=== PATIENT | male | born 1960 | race Caucasian/White ===

== ENCOUNTER 2016-10-28 16:15 | Emergency (ER) | payer BC ==
[2016-10-28 16:32] VITALS: BP 134/85; PULSE 70; TEMP 97.9; BMI 21.6
--- NOTE | 2016-10-28 17:13 | PDOC ---
History of Present Illness - History of Present Illness Initial Comments: 10/28/16 17:18 The patient is a 56 year old male, with a significant past medical history of diabetes (insulin) and hypertension, who presents to the emergency department with severe right sided headaches for a few days. He reports the pain is a constant, throbbing pain. He reports taking two Aleve with little to no alleviation of the pain. Secondarily, he reports right eye pain. He denies experiencing migraines in the past. He reports three episodes of vomiting last night. He states that if he presses on the right side of his posterior neck, it aggravates his right sided headache. He denies chest pain, shortness of breath, headache and dizziness. He denies fever, chills, nausea, vomit, diarrhea and constipation. He denies dysuria, frequency, urgency and hematuria. Allergies: NKDA <Aggie Mercado - Last Filed: 10/28/16 18:10> <Chago Patino - Last Filed: 10/28/16 18:55> - General Chief Complaint: Migraine Headache Stated Complaint: HEADACHE Past History <Aggie Mercado - Last Filed: 10/28/16 18:10> - Past Medical History Diabetes: Yes HTN: Yes Hypercholesterolemia: Yes - Immunization History Immunization Up to Date: Yes (no flu shot) - Psycho/Social/Smoking Cessation Hx Anxiety: No Suicidal Ideation: No Smoking History: Current every day smoker Have you smoked in the past 12 months: Yes Number of Cigarettes Smoked Daily: 6 Information on smoking cessation initiated: No Hx Alcohol Use: Yes Drug/Substance Use Hx: No Substance Use Type: Alcohol <Chago Patino - Last Filed: 10/28/16 18:55> - Past Medical History Allergies/Adverse Reactions: Allergies Allergy/AdvReac Type Severity Reaction Status Date / Time No Known Allergies Allergy Verified 10/28/16 16:28 Review of Systems - Review of Systems Able to Perform ROS?: Yes Comments:: 10/28/16 17:21 CONSTITUTIONAL: Absent: fever, chills, diaphoresis, generalized weakness, malaise, loss of appetite HEENT: (+) right eye pain. Absent: rhinorrhea, nasal congestion, throat pain, throat swelling, difficulty swallowing, mouth swelling, ear pain, eye pain, visual Changes CARDIOVASCULAR: Absent: chest pain, syncope, palpitations, irregular heart rate, lightheadedness , peripheral edema RESPIRATORY: Absent: cough, shortness of breath, dyspnea with exertion, orthopnea, wheezing, stridor, hemoptysis GASTROINTESTINAL: Absent: abdominal pain, abdominal distension, nausea, vomiting, diarrhea, constipation, melena, hematochezia GENITOURINARY: Absent: dysuria, frequency, urgency, hesitancy, hematuria, flank pain, genital pain MUSCULOSKELETAL: Absent: myalgia, arthralgia, joint swelling SKIN: Absent: rash, itching, pallor HEMATOLOGIC/IMMUNOLOGIC: Absent: easy bleeding, easy bruising, lymphadenopathy, frequent infections ENDOCRINE: Absent: unexplained weight gain, unexplained weight loss, heat intolerance, cold intolerance NEUROLOGIC: (+) headache, Absent: focal weakness or paresthesias, dizziness, unsteady gait , seizure, mental status changes, bladder or bowel incontinence PSYCHIATRIC: Absent: anxiety, depression, suicidal or homicidal ideation, hallucinations. <Aggie Mercado - Last Filed: 10/28/16 18:10> *Physical Exam - Vital Signs Last Vital Signs Temp Pulse Resp BP Pulse Ox 97.9 F 70 20 134/85 100 10/28/16 16:29 10/28/16 16:29 10/28/16 16:29 10/28/16 16:29 10/28/16 16:29 - Physical Exam Comments: 10/28/16 17:22 GENERAL: Well developed, well nourished. Awake and alert. No acute distress. HEENT: Normocephalic, atraumatic. PERRLA, EOMI. No conjunctival pallor. Sclera are non- icteric. Moist mucous membranes. Oropharynx is clear. NECK: Supple. Full ROM. No JVD. Carotid pulses 2+ and symmetric, without bruits. No thyromegaly. No lymphadenopathy. CARDIOVASCULAR: Regular rate and rhythm. No murmurs, rubs, or gallops. Distal pulses are 2+ and symmetric. PULMONARY: No evidence of respiratory distress. Lungs clear to auscultation bilaterally. No wheezing, rales or rhonchi. ABDOMINAL: Soft. Non-tender. Non-distended. No rebound or guarding. No organomegaly. Normoactive bowel sounds. MUSCULOSKELETAL Normal range of motion at all joints. No bony deformities or tenderness. No CVA tenderness. EXTREMITIES: No cyanosis. No clubbing. No edema. No calf tenderness. SKIN: Warm and dry. Normal capillary refill. No rashes. No jaundice. NEUROLOGICAL: Alert, awake, appropriate. Cranial nerves 2-12 intact. Normoreflexic in the upper and lower extremities. Normal speech. Toes are down-going bilaterally. Gait is normal without ataxia. PSYCHIATRIC: Cooperative. Good eye contact. Appropriate mood and affect. <Aggie Mercado - Last Filed: 10/28/16 18:10> - Vital Signs Last Vital Signs Temp Pulse Resp BP Pulse Ox 97.9 F 70 20 134/85 100 10/28/16 16:29 10/28/16 16:29 10/28/16 16:29 10/28/16 16:29 10/28/16 16:29 <Chago Patino - Last Filed: 10/28/16 18:55> ED Treatment Course - LABORATORY CBC & Chemistry Diagram: 10/28/16 17:14 <Aggie Mercado - Last Filed: 10/28/16 18:10> - LABORATORY CBC & Chemistry Diagram: 10/28/16 17:14 10/28/16 17:14 <Chago Patino - Last Filed: 10/28/16 18:55> *DC/Admit/Observation/Transfer - Attestations Scribe Attestion: 10/28/16 17:24 Documentation prepared by Aggie Mercado, acting as medical psychotherapist for Chago Patino MD, <Aggie Mercado - Last Filed: 10/28/16 18:10> - Discharge Dispostion Admit: No <Chago Patino - Last Filed: 10/28/16 18:55> Diagnosis at time of Disposition: Headache, Chronic sinusitis - Discharge Dispostion Disposition: HOME Condition at time of disposition: Improved
[2016-10-28] MEDS ORDERED: METOCLOPRAMIDE HCL INJECTION 10 MG/2 ML VIAL IVPUSH ONE (17:15)
[2016-10-28] MEDS ORDERED: ACETAMINOPHEN 500 MG TABLET (FP) PO ONE (17:16)
[2016-10-28] MEDS ORDERED: ACETAMINOPHEN INJECTION 100 ML IVPB ONE (17:30)
[2016-10-28] MEDS ORDERED: METOCLOPRAMIDE HCL INJECTION 10 MG/2 ML VIAL ONE (17:30)
[2016-10-28 17:36] LABS: BASOPHIL 0.9 % (0-2.0); EOSINOPHIL 1.1 % (0-4.5); MCH 30.3 pg (25.7-33.7); MCHC 32.3 g/dl (32.0-35.9); MEAN CELL VOLUME 93.6 fl (80-96); MEAN PLT VOLUME 11.8 fl (7.5-11.1); NEUTROPHILS 66.8 % (42.8-82.8); PLATELET COUNT 198 K/MM3 (134-434); RDW 13.7 % (11.9-15.9)
[2016-10-28] MEDS ORDERED: ACETAMINOPHEN 325 MG TABLET (FP) ONE (17:40)
[2016-10-28 18:25] LABS: ALBUMIN 3.7 g/dl (3.4-5.0); ALK PHOS 76 U/L (45-117); ANION GAP 9 (8-16); BILIRUBIN,TOTAL 0.4 mg/dL (0.2-1.0); CO2 29 mmol/L (21-32); CREATININE 0.7 mg/dL (0.7-1.3); GLUCOSE,RANDOM 225 mg/dL (74-106); SGOT/AST 9 U/L (15-37); SGPT/ALT 17 U/L (12-78); TOT PROT 7.2 g/dl (6.4-8.2)
[2016-10-28] MEDS ORDERED: AMOX TR/POT CLAV 875MG/125MG TABLETS (FP) PO ONE (18:56)
[2016-10-28] MEDS ORDERED: AMOX TR/POT CLAV 875MG/125MG TABLETS (FP) ONE (19:00)
== END 2016-10-28 19:46 | disposition home or self-care (01) ==
LOC: JER 16:15
PROC: 3E033GC Introduction of Other Therapeutic Substance into Peripheral Vein, Percutaneous Approach (ICD-10-PCS; principal; 2016-10-28)
DX: R51 Headache (principal); J32.8 Other chronic sinusitis; F17.210 Nicotine dependence, cigarettes, uncomplicated; I10 Essential (primary) hypertension; E11.9 Type 2 diabetes mellitus without complications; Z79.4 Long term (current) use of insulin; E78.00 Pure hypercholesterolemia, unspecified
CPT/HCPCS: 36415; 70450-TC; 80053; 85025; 99282-25

== ENCOUNTER 2023-07-25 15:41 | Emergency (ER) | payer BC ==
[2023-07-25 15:52] VITALS: BMI 19.6
[2023-07-25] MEDS ORDERED: KETOROLAC TROMETHAMINE 30 MG/1 ML VIAL IM ONE (16:51)
[2023-07-25] MEDS ORDERED: ACETAMINOPHEN 500 MG TABLET (FP) PO ONE (16:55)
[2023-07-25] MEDS ORDERED: KETOROLAC TROMETHAMINE 30 MG/1 ML VIAL ONE (17:28)
[2023-07-25] MEDS ORDERED: ACETAMINOPHEN 500 MG TABLET (FP) ONE (17:28)
[2023-07-25 19:33] VITALS: BP 130/79; PULSE 80; RESP 12; TEMP 98.5
== END 2023-07-25 22:02 | disposition home or self-care (01) ==
LOC: JER 15:41
PROC: 3E0233Z Introduction of Anti-inflammatory into Muscle, Percutaneous Approach (ICD-10-PCS; principal; 2023-07-25)
DX: M79.605 Pain in left leg (principal); R26.2 Difficulty in walking, not elsewhere classified; M79.604 Pain in right leg
CPT/HCPCS: 72100-TC-FY; 73502-TC-LT-FY; 93971-TC; 99284-25

== ENCOUNTER 2023-07-30 12:44 | Inpatient (IN) | payer BC ==
[2023-07-30] MEDS ORDERED: ACETAMINOPHEN 1000 MG/100 ML BAG IVPB ONE (14:21)
[2023-07-30] MEDS ORDERED: ACETAMINOPHEN INJECTION 100 ML IVPB ONE (14:24)
[2023-07-30 14:29] LABS: BASO % 0.8 % (0-2.0); EOS % 6.3 % (0-4.5); HEMATOCRIT 45.7 % (35.4-49); LYMPH % 15.2 % (8-40); MCH 32.1 pg (25.7-33.7); MEAN CELL VOLUME 91.7 fl (80-96); MEAN PLT VOLUME 10.9 fl (7.5-11.1); MONO % 9.5 % (3.8-10.2); NEUT % 68.2 % (42.8-82.8); PLATELET COUNT 226 10^3/uL (134-434); RBC 4.98 M/mm3 (4.00-5.60); RDW 13.6 % (11.9-15.9); WHITE BLOOD COUNT 12.5 K/mm3 (4.0-10.0)
[2023-07-30 14:38] LABS: INR 0.94 (0.83-1.09); PROTHROMBIN TIME (PATIENT) 10.9 SEC (9.7-13.0)
[2023-07-30 14:41] LABS: ACTIVATED PTT 28.8 SECONDS (25.2-36.5)
[2023-07-30 14:50] LABS: POTASSIUM 4.2 mmol/L (3.5-5.1)
[2023-07-30 14:52] LABS: CALCIUM 8.8 mg/dL (8.5-10.1)
[2023-07-30 14:54] LABS: ALBUMIN 3.2 g/dl (3.4-5.0); BLOOD UREA NITROGEN 7.6 mg/dL (7-18)
[2023-07-30 14:56] LABS: CREATININE 0.8 mg/dL (0.55-1.3)
[2023-07-30 14:58] LABS: BILIRUBIN,TOTAL 0.2 mg/dL (0.2-1); TOT PROT 6.9 g/dl (6.4-8.2)
[2023-07-30] MEDS ORDERED: HEPARIN NA (PORCINE) 5,000 UNITS/ML 1ML VIAL IVPUSH PRN ×2 (18:04)
[2023-07-30] MEDS ORDERED: HEPARIN - 25,000 UNIT in SODIUM CHLORIDE 495 ML IV SCH ×2 (18:15→19:06)
[2023-07-30] MEDS ORDERED: HEPARIN NA (PORCINE) 5,000 UNITS/ML 1ML VIAL IVPUSH ONE (18:16)
[2023-07-30] MEDS ORDERED: HEPARIN INFUSION - 25,000 UNITS/500 ML INFUS.BAG IVPB ONE (18:27)
[2023-07-30] MEDS ORDERED: HEPARIN NA (PORCINE) 5,000 UNITS/ML 1ML VIAL ONE (18:27)
[2023-07-30] MEDS ORDERED: ATORVASTATIN CA 40 MG TABLET (FP) PO SCH (22:12)
[2023-07-31 02:16] LABS: INR 0.93 (0.83-1.09); PROTHROMBIN TIME (PATIENT) 10.8 SEC (9.7-13.0)
[2023-07-31 02:19] LABS: ACTIVATED PTT 53.8 SECONDS (25.2-36.5)
[2023-07-31] MEDS ORDERED: ASPIRIN 81 MG CHEWABLE TABLETS PO SCH ×2 (03:40→10:00)
[2023-07-31] MEDS ORDERED: ATORVASTATIN CA 40 MG TABLET (FP) ONE (05:05)
[2023-07-31] MEDS ORDERED: ASPIRIN 81 MG CHEWABLE TABLETS ONE (05:06)
[2023-07-31] MEDS ORDERED: metFORMIN HCL 500 MG TABLET (FP) PO SCH (07:00)
[2023-07-31] MEDS ORDERED: sitaGLIPtin PHOSPHATE 50 MG TABLET PO SCH (07:00)
[2023-07-31 07:53] LABS: BASO % 1.1 % (0-2.0); EOS % 6.4 % (0-4.5); HEMATOCRIT 44.1 % (35.4-49); HEMOGLOBIN 14.9 GM/dL (11.7-16.9); LYMPH % 19.3 % (8-40); MCH 31.4 pg (25.7-33.7); MCHC 33.8 g/dl (32.0-35.9); MEAN CELL VOLUME 92.9 fl (80-96); MEAN PLT VOLUME 11.1 fl (7.5-11.1); MONO % 9.3 % (3.8-10.2); NEUT % 63.9 % (42.8-82.8); PLATELET COUNT 233 10^3/uL (134-434); RBC 4.75 M/mm3 (4.00-5.60); RDW 13.5 % (11.9-15.9); WHITE BLOOD COUNT 11.4 K/mm3 (4.0-10.0)
[2023-07-31] MEDS: INSULIN SLIDING SCALE (NOVOLOG) 1 VIAL SQ SCH ×4 (08:01→21:41)
[2023-07-31 08:02] LABS: ACTIVATED PTT 51.7 SECONDS (25.2-36.5)
[2023-07-31 08:12] LABS: INR 1.01 (0.83-1.09); PROTHROMBIN TIME (PATIENT) 11.7 SEC (9.7-13.0)
[2023-07-31 08:22] LABS: CALCIUM 8.7 mg/dL (8.5-10.1); MAGNESIUM 2.1 mg/dL (1.8-2.4)
[2023-07-31 08:25] LABS: CREATININE 0.6 mg/dL (0.55-1.3); PHOSPHOROUS 4.2 mg/dL (2.5-4.9)
[2023-07-31 08:27] LABS: BILIRUBIN,TOTAL 0.4 mg/dL (0.2-1); TOT PROT 6.7 g/dl (6.4-8.2)
[2023-07-31] MEDS ORDERED: LOSARTAN POTASSIUM 50 MG TABLET PO SCH (10:00)
[2023-07-31] MEDS ORDERED: CLOPIDOGREL BISULFATE 75 MG TABLET (FP) PO SCH (10:00)
[2023-07-31] MEDS ORDERED: EMPAGLIFLOZIN (JARDIANCE) 10 MG TABLET PO SCH (10:00)
[2023-07-31] MEDS ORDERED: PATIENT'S OWN MEDICATION (NON-FORMULARY) (Sitagliptin Phos/Metformin Hcl [Janumet 50-1,000 PO SCH (10:00)
[2023-07-31] MEDS ORDERED: GABAPENTIN 100 MG CAPSULE PO SCH (10:00)
[2023-07-31] MEDS ORDERED: LACTATED RINGERS SOLUTION 1,000 ML IV SCH (10:45)
[2023-07-31] MEDS ORDERED: ONDANSETRON 4 MG/2 ML VIAL IVPUSH PRN ×2 (10:45→15:49)
[2023-07-31] MEDS ORDERED: PROMETHAZINE HCL 25 MG/1 ML VIAL IVPB PRN ×2 (10:45→15:49)
[2023-07-31] MEDS ORDERED: LIDOCAINE HCL 1%, 10 MG/ML (20ML VIAL) NR ONE ×2 (10:52→14:30)
[2023-07-31] MEDS ORDERED: HEPARIN NA (PORCINE) 5,000 UNITS/ML 1ML VIAL SQ ONE ×2 (10:53→14:36)
[2023-07-31] MEDS ORDERED: LIDOCAINE HCL 1%, 10 MG/ML (20ML VIAL) ONE (11:16)
[2023-07-31] MEDS ORDERED: HEPARIN NA (PORCINE) 5,000 UNITS/ML 1ML VIAL ONE (11:16)
[2023-07-31] MEDS ORDERED: MIDAZOLAM HCL 2 MG/2 ML SINGLE DOSE VIAL ONE (14:03)
[2023-07-31] MEDS ORDERED: FENTANYL CITRATE/PF 50 MCG/ML VIAL ONE (14:03)
[2023-07-31] MEDS ORDERED: PROPOFOL 20 ML ONE (14:03)
[2023-07-31] MEDS ORDERED: ceFAZolin SODIUM 1 GM VIAL ONE (14:13)
[2023-07-31] MEDS ORDERED: SODIUM CHLORIDE 0.9% P/F 10 ML VIAL IJ ONE (14:13)
[2023-07-31] MEDS ORDERED: ceFAZolin SODIUM 1 GM VIAL IVPB ONE (14:20)
[2023-07-31] MEDS ORDERED: LIDOCAINE HCL/PF 2% SDV 5ML VIAL ONE (14:30)
[2023-07-31] MEDS ORDERED: METOPROLOL TARTRATE 5 MG/5 ML VIAL ONE (15:23)
[2023-07-31] MEDS: APIXABAN 5 MG TABLET PO SCH ×3 (15:43→21:37)
[2023-07-31] MEDS: LACTATED RINGERS SOLUTION 1,000 ML IV SCH ×2 (17:26→18:44)
[2023-07-31] MEDS ORDERED: ACETAMINOPHEN 1000 MG/100 ML BAG IVPB PRN (17:56)
[2023-07-31] MEDS ORDERED: ACETAMINOPHEN 325 MG TABLET (FP) PO PRN (18:39)
[2023-07-31] MEDS: ACETAMINOPHEN 1000 MG/100 ML BAG IVPB PRN (18:44)
[2023-07-31] MEDS: GABAPENTIN 100 MG CAPSULE PO SCH (21:37)
[2023-07-31] MEDS: ATORVASTATIN CA 40 MG TABLET (FP) PO SCH (21:37)
[2023-07-31] MEDS: oxyCODONE HCL 5 MG TABLET PO PRN (23:23)
[2023-08-01] MEDS: LACTATED RINGERS SOLUTION 1,000 ML IV SCH ×2 (03:07→16:18)
[2023-08-01] MEDS: INSULIN SLIDING SCALE (NOVOLOG) 1 VIAL SQ SCH ×4 (06:43→22:07)
[2023-08-01] MEDS ORDERED: INSULIN (NOVOLOG) ASPART 100 UNITS/ML 10ML VIAL ONE (07:07)
[2023-08-01 09:43] LABS: BASO % 0.6 % (0-2.0); EOS % 3.7 % (0-4.5); HEMATOCRIT 39.6 % (35.4-49); HEMOGLOBIN 13.5 GM/dL (11.7-16.9); LYMPH % 13.1 % (8-40); MCH 31.7 pg (25.7-33.7); MCHC 34.1 g/dl (32.0-35.9); MEAN PLT VOLUME 10.7 fl (7.5-11.1); NEUT % 72.6 % (42.8-82.8); PLATELET COUNT 232 10^3/uL (134-434); RBC 4.26 M/mm3 (4.00-5.60); RDW 13.1 % (11.9-15.9)
[2023-08-01] MEDS: LOSARTAN POTASSIUM 50 MG TABLET PO SCH (09:57)
[2023-08-01] MEDS: GABAPENTIN 100 MG CAPSULE PO SCH ×2 (09:57→22:02)
[2023-08-01] MEDS: oxyCODONE HCL 5 MG TABLET PO PRN (09:58)
[2023-08-01] MEDS: ASPIRIN 81 MG CHEWABLE TABLETS PO SCH (09:58)
[2023-08-01 10:02] LABS: POTASSIUM 4.1 mmol/L (3.5-5.1)
[2023-08-01 10:05] LABS: BLOOD UREA NITROGEN 6.7 mg/dL (7-18)
[2023-08-01 10:07] LABS: CALCIUM 8.7 mg/dL (8.5-10.1)
[2023-08-01 10:09] LABS: CREATININE 0.8 mg/dL (0.55-1.3)
[2023-08-01] MEDS: APIXABAN 5 MG TABLET PO SCH ×3 (10:58→22:02)
[2023-08-01] MEDS: ACETAMINOPHEN 1000 MG/100 ML BAG IVPB PRN ×2 (16:12→22:15)
[2023-08-01 16:16] LABS: BASO % 0.8 % (0-2.0); HEMATOCRIT 39.3 % (35.4-49); HEMOGLOBIN 13.3 GM/dL (11.7-16.9); LYMPH % 15.7 % (8-40); MCH 31.2 pg (25.7-33.7); MCHC 33.7 g/dl (32.0-35.9); MEAN CELL VOLUME 92.5 fl (80-96); MEAN PLT VOLUME 11.2 fl (7.5-11.1); MONO % 10.2 % (3.8-10.2); NEUT % 67.3 % (42.8-82.8); PLATELET COUNT 238 10^3/uL (134-434); RBC 4.25 M/mm3 (4.00-5.60); RDW 13.2 % (11.9-15.9); WHITE BLOOD COUNT 12.5 K/mm3 (4.0-10.0)
[2023-08-01] MEDS: ATORVASTATIN CA 40 MG TABLET (FP) PO SCH (22:02)
[2023-08-02] MEDS: LACTATED RINGERS SOLUTION 1,000 ML IV SCH (00:49)
[2023-08-02] MEDS: INSULIN SLIDING SCALE (NOVOLOG) 1 VIAL SQ SCH ×2 (06:04→12:22)
[2023-08-02] MEDS: ACETAMINOPHEN 1000 MG/100 ML BAG IVPB PRN (06:23)
[2023-08-02] MEDS: APIXABAN 5 MG TABLET PO SCH (10:05)
[2023-08-02] MEDS: GABAPENTIN 100 MG CAPSULE PO SCH (10:05)
[2023-08-02] MEDS: LOSARTAN POTASSIUM 50 MG TABLET PO SCH (10:05)
[2023-08-02] MEDS: ASPIRIN 81 MG CHEWABLE TABLETS PO SCH (10:05)
[2023-08-02 10:07] VITALS: RESP 20
[2023-08-02 10:14] LABS: HEMATOCRIT 38.3 % (35.4-49); MCH 31.1 pg (25.7-33.7); MEAN CELL VOLUME 91.4 fl (80-96); MEAN PLT VOLUME 11.1 fl (7.5-11.1); PLATELET COUNT 223 10^3/uL (134-434); RBC 4.19 M/mm3 (4.00-5.60); RDW 13.2 % (11.9-15.9); WHITE BLOOD COUNT 13.5 K/mm3 (4.0-10.0)
[2023-08-02 11:17] LABS: ALBUMIN 2.9 g/dl (3.4-5.0); CALCIUM 8.9 mg/dL (8.5-10.1)
[2023-08-02 11:18] LABS: BLOOD UREA NITROGEN 6.3 mg/dL (7-18); MAGNESIUM 1.7 mg/dL (1.8-2.4)
[2023-08-02 11:20] LABS: CREATININE 0.5 mg/dL (0.55-1.3)
[2023-08-02 11:21] LABS: PHOSPHOROUS 3.7 mg/dL (2.5-4.9)
[2023-08-02 11:22] LABS: BILIRUBIN,TOTAL 0.5 mg/dL (0.2-1)
[2023-08-02 11:23] LABS: TOT PROT 6.3 g/dl (6.4-8.2)
[2023-08-02 14:25] VITALS: BP 154/75; PULSE 92; TEMP 98.3
[2023-08-02 20:31] VITALS: BMI 19.8
== END 2023-08-02 15:55 | disposition home or self-care (01) | DRG 272 ==
LOC: JER 12:44 → JERBED 19:04 → UNDOADMIN 19:04 → J6S 07-31 11:02
PROVIDERS: ADMIT Internal Medicine; ATTEND Internal Medicine
PROC: 04CN3ZZ Extirpation of Matter from Left Popliteal Artery, Percutaneous Approach (ICD-10-PCS; 2023-07-31)
PROC: 047N3ZZ Dilation of Left Popliteal Artery, Percutaneous Approach (ICD-10-PCS; 2023-07-31)
PROC: 04CN3ZZ Extirpation of Matter from Left Popliteal Artery, Percutaneous Approach (ICD-10-PCS; 2023-07-31)
PROC: B40GYZZ Plain Radiography of Left Lower Extremity Arteries using Other Contrast (ICD-10-PCS; 2023-07-31)
PROC: B40DYZZ Plain Radiography of Aorta and Bilateral Lower Extremity Arteries using Other Contrast (ICD-10-PCS; principal; 2023-07-31 13:00)
DX: E11.51 Type 2 diabetes mellitus with diabetic peripheral angiopathy without gangrene (principal); I10 Essential (primary) hypertension; I77.1 Stricture of artery; E78.5 Hyperlipidemia, unspecified; E11.40 Type 2 diabetes mellitus with diabetic neuropathy, unspecified
CPT/HCPCS: 0241U-QW; 36415; 75635-TC; 76000-TC-FY; 80048; 80053; 80061; 82962; 83036; 83735; 84100; 84443; 85025; 85027; 85610; 85730; 86850; 86900; 86901; 93005; 93010; 93306-TC; 94760; 99285-25; C1760; C1769; J1644